=== PATIENT | male | born 1955 | race Caucasian/White ===

== ENCOUNTER 2019-12-14 19:02 | IRF | payer MEDICARE, SELFPAY ==
--- NOTE | ~2019-12-14 | XR_ITS ---
EXAMINATION: XR chest 1V portable DATE: 12/18/2019 15:44 INDICATION: Fever. TECHNIQUE: A single frontal view of the chest was obtained. COMPARISON: Chest 2 views 03/31/2010 FINDINGS: There is volume loss of right hemithorax. Calcified right lung nodules are consistent with old granulomatous disease. There is widening of the superior mediastinum. No pleural effusion or pneu mothorax. Cardiomegaly is noted. There are changes of anterior fusion procedure in cervicothoracic sp ine. IMPRESSION: 1. Widening of superior mediastinum suspicious for lymphadenopathy or right mediastinal radiation fib rosis (if there is such a clinical history). 2. Volume loss of right hemithorax, which may be secondary to atelectasis/scarring or surgical change (if there is such a clinical history). Reviewed, dictated and finalized at location A. ING MACHINE OPERATOR ELECTROSLAG IMPRESSION: 1. Widening of superior mediastinum suspicious for lymphadenopathy or right med iastinal radiation fibrosis (if there is such a clinical history). 2. Volume loss of right hemithorax, which may be secondary to atelectasis/scarr ing or surgical change (if there is such a clinical history).
--- NOTE | ~2019-12-14 | CT_ITS ---
EXAMINATION: CT abdomen pelvis wo con DATE: 12/19/2019 13:23 INDICATION: Fever and abdominal pain, history of laryngeal carcinoma TECHNIQUE: Computed tomography (CT) of the abdomen and pelvis was performed without intravenous contr ast. The dose-length product (DLP) was 1035.68 mGy-cm. Automated exposure control and iterative recon struction technique were employed. COMPARISON: None FINDINGS: There is moderate emphysema of the visualized lung bases. Volume loss is noted in the right lung base with bronchiectasis and multiple dystrophic calcifications. There is a small loculated rig ht pleural effusion. The heart size is normal. Calcified atherosclerosis is noted. Punctate calcifica tions in an otherwise normal spleen likely represent healed granulomatous disease. Mild distention of the otherwise unremarkable gallbladder could be due to fasting state. The liver, pancreas, and adren al glands are normal. The kidneys are unremarkable. There is calcified atherosclerosis of the aorta a nd many of the other arteries. No pathologically enlarged abdominal or pelvic lymph nodes are identif ied. There is no free intraperitoneal gas or evidence of bowel obstruction. There is severe lumbar sp ondylosis. IMPRESSION: 1. No CT correlate for the patient's symptoms. 2. Volume loss in the right lung and lower lobe which could relate to treatment change. Reviewed, dictated and finalized at location A. NDER OPERATOR HELPER
--- NOTE | ~2019-12-14 | XR_ITS ---
EXAMINATION: XR abdomen/kub 1V INDICATION: Abdominal pain and decreased bowel sounds TECHNIQUE: Supine views of the abdomen were obtained on 2 radiographs. COMPARISON: None FINDINGS: No free intraperitoneal gas is identified. No dilated loops of bowel are seen. The visualiz ed lung bases are clear. Cardiomegaly is noted. There is calcified atherosclerosis. Moderate osteoart hritis is noted in the hips. There is severe lumbar spondylosis. IMPRESSION: 1. No radiographic correlate for the patient's symptoms. Reviewed, dictated and finalized at location A. ULTING MANAGER
--- NOTE | 2019-12-14 19:01 | ADMGEN ---
This patient, Alber Pérez, was admitted to [facility] Room 224-02. Patient/family oriented to hospital policies and general routines including ID bracelet, bed and alarms, visiting hours, pain management, procedures, bathroom and other care routines, personal items, smoking policy, room service/diet, and visiting hours. Information on how to activate the Rapid Response Team has been discussed. Patient/Family are encouraged to report perceived risks to care and to ask questions if they do not understand what they are told or what they should do. 1850 Patient transported via medic one, Arrived via stretcher and was transferred to bed with 3 assist, ems reported some confusion to place and time, o/w VSS. oriented to call light and made comfortable in bed.
[2019-12-14 20:54] LABS: Glucose Point of Care 113 (65-105)
[2019-12-14 21:05] VITALS: BP 123/71; PULSE 98; RESP 18; TEMP 36.6; O2SAT 100
[2019-12-14] MEDS: HEPARIN SODIUM 5,000 UNITS/ML VIAL 5000 UNITS SUB-Q (21:14)
[2019-12-14] MEDS: INSULIN GLARGINE (*BKC) 100 UNITS/ML 10 UNITS SUB-Q (21:16)
[2019-12-15 05:44] VITALS: BP 119/68; PULSE 76; RESP 20; TEMP 36.1; O2SAT 94
[2019-12-15 05:56] LABS: Basophils Percent Auto 0.4 % (0.2-1.2); Eosinophils Absolute Auto 0.3 K/mm3 (0-0.3); Eosinophils Percent Auto 4.4 % (0-4.4); Hemoglobin 12.3 g/dL (14.0-18.0); Immature Granulocyte Absolute 0.05 K/mm3 (0.00-0.031); Immature Granulocyte Percent A 0.7 % (0-0.5); Lymphocytes Absolute Auto 1.35 K/mm3 (0.9-3.2); Lymphocytes Percent Auto 19.9 % (18.3-44.2); Mean Corpuscular HGB Conc 32.4 g/dl (32-36); Mean Corpuscular Hemoglobin 30.8 pg (26-34); Mean Platelet Volume 10.8 fl (7.4-10.4); Monocytes Percent Auto 14.7 % (2.6-8.5); Neutrophils Absolute Auto 4.1 K/mm3 (1.3-6.7); Neutrophils Percent Auto 59.9 % (45.5-73.1); Platelet Count Result 278 k/mm3 (150-375); Red Cell Distribution Width 13.6 % (11.5-14.5); White Blood Count 6.8 K/mm3 (4.5-10.0)
[2019-12-15 06:07] LABS: Anion Gap 7 mmol/L (8-16); Blood Urea Nitrogen 19 mg/dL (9-20); Calcium 9.1 mg/dL (8.4-10.2); Carbon Dioxide 34 mmol/L (22-30); Chloride 95 mmol/L (98-107); Estimated Glomerular Filt Rate 47; Glucose 77 mg/dL (75-110); Sodium 136 mmol/L (137-145)
[2019-12-15] MEDS: HEPARIN SODIUM 5,000 UNITS/ML VIAL 5000 UNITS SUB-Q ×3 (06:15→20:41)
[2019-12-15 06:42] LABS: Glucose Point of Care 82 (65-105)
[2019-12-15] MEDS: HYDROcodone/acetaminophen (*CRX) 10-325 MG TABLET 1 TAB PO ×2 (08:16→15:14)
[2019-12-15] MEDS: ATORVASTATIN 40 MG TABLET 80 MG PO (08:17)
[2019-12-15 08:18] VITALS: PULSE 76
[2019-12-15] MEDS: ESCITALOPRAM OXALATE 10 MG TABLET 20 MG PO (08:18)
[2019-12-15] MEDS: lisinopriL 5 MG TABLET PO (08:18)
[2019-12-15] MEDS: hydroCHLOROthiazide 25 MG TABLET PO (08:18)
[2019-12-15] MEDS: METOPROLOL SUCCINATE EXT REL 25 MG TABCR 75 MG PO (08:18)
[2019-12-15] MEDS: buPROPion HCL XL (24 HR) 150 MG TABCR PO (08:18)
[2019-12-15] MEDS: POTASSIUM CHLORIDE 20 MEQ TABLET.ER PO ×2 (08:19→18:00)
[2019-12-15] MEDS: SENNOSIDES 8.6 MG TABLET PO (08:20)
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
[2019-12-15 12:09] LABS: Glucose Point of Care 125 (65-105)
[2019-12-15 13:22] VITALS: BMI 29.8
[2019-12-15 13:23] VITALS: BMI 29.8
[2019-12-15 14:00] VITALS: BP 128/67; PULSE 78; RESP 18; TEMP 36.2; O2SAT 96
[2019-12-15 16:48] LABS: Glucose Point of Care 120 (65-105)
[2019-12-15 20:00] VITALS: PULSE 65; RESP 19; O2SAT 96
[2019-12-15 21:55] LABS: Glucose Point of Care 114 (65-105)
[2019-12-15 22:00] VITALS: BP 128/74; PULSE 65; RESP 19; TEMP 36; O2SAT 96
[2019-12-16] MEDS: HEPARIN SODIUM 5,000 UNITS/ML VIAL 5000 UNITS SUB-Q ×3 (05:31→21:26)
[2019-12-16 05:47] LABS: Glucose Point of Care 87 (65-105)
[2019-12-16 06:00] VITALS: BP 130/76; PULSE 72; RESP 18; TEMP 36.7; O2SAT 100
[2019-12-16 08:00] VITALS: PULSE 72; RESP 18; O2SAT 100
[2019-12-16 09:13] VITALS: PULSE 72
[2019-12-16] MEDS: POTASSIUM CHLORIDE 20 MEQ TABLET.ER PO ×2 (09:13→17:11)
[2019-12-16] MEDS: buPROPion HCL XL (24 HR) 150 MG TABCR PO (09:13)
[2019-12-16] MEDS: ATORVASTATIN 40 MG TABLET 80 MG PO (09:13)
[2019-12-16] MEDS: METOPROLOL SUCCINATE EXT REL 25 MG TABCR 75 MG PO (09:13)
[2019-12-16] MEDS: lisinopriL 5 MG TABLET PO (09:13)
[2019-12-16] MEDS: HYDROcodone/acetaminophen (*CRX) 10-325 MG TABLET 1 TAB PO (09:14)
[2019-12-16] MEDS: hydroCHLOROthiazide 25 MG TABLET PO (09:14)
[2019-12-16] MEDS: ESCITALOPRAM OXALATE 10 MG TABLET 20 MG PO (09:14)
[2019-12-16] MEDS: SENNOSIDES 8.6 MG TABLET PO (09:16)
--- NOTE | 2019-12-16 09:16 | RPD ---
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 Comorbidities include status post craniectomy, hypertension, diabetes mellitus, acute postoperative pain, acute blood loss anemia, and hypoglycemia. The complexity of the patient's medical management, nursing, and therapy needs require an inpatient rehab hospital stay with a physician-led interdisciplinary team approach. The patient?s needs will be best met in an intensive program vs. at a lower level of care. The patient requires physician services for medical oversight, management of post-op complications in setting of present comorbidities, and pain management. The patient requires nursing services for anticoagulation therapy, diabetes training, DVT prophylactics, infection protection, medication management and education, pressure relief, and wound care. Deficits include:ADLs, Balance, Cognition, Endurance, Family Training/Education, Mobility, Pain Management, ROM, Safety, Strength, Transfers Child Daycare Worker/Case Management for: Discharge Planning and Patient/Family Counseling Physical Therapy: 5 days per week for 60 minutes. Treatments may include: Therapeutic Exercise, Gait Training, Neuromuscular Re-education, Transfer Training, Community Reintegration, Bed Mobility, Patient/Family Education, Wheelchair Mobility Group Therapy/Concurrent Therapy Rationales: -Improve attention span during functional activities in a distracted environment. -Enhance problem solving and/or adequate judgment skills during functional activities in a distracted environment. -Promote increased safety awareness in a distracted environment to reduce fall risk with functional tasks, transfers, and ambulation to allow a more safe, self-sufficient return to the home environment. -Improve dynamic balance skills to promote safety and independence with functional activities in a distracted environment for maximum gain. Occupational Therapy: 5 days per week for 60 minutes. Treatments may include: Therapeutic Exercise, Therapeutic Activity, Cognitive Training, Self-Care Transfer Training, Community Reintegration, Home Management, Patient/Family Education, Wheelchair Mobility Training, Energy Conservation Training Group Therapy/Concurrent Therapy Rationales: -Allow therapist to observe and teach generalization and carry-over of skills learned in individual therapy. -Enhance problem solving and sequencing skills during therapeutic activities in a distracted environment. -Promote increased safety awareness in a realistic setting to reduce fall risk with functional tasks due to visual and verbal distractions. -Increase functional level with ADLs, ADL transfers and use of adaptive equipment through therapeutic activities with others while promoting safety to allow a more safe, self-sufficient return home. Speech Therapy: 5 days per week for 60 minutes. Treatments may include: Dysphasia Therapy, Speech/Language/Communication Therapy, Cognitive Training, Patient/Family Education Group Therapy/Concurrent Therapy - Rationale: -Allow therapist to observe and teach generalization and carry-over of skills learned in individual therapy. -Improve comprehension skills with complex or abstract ideas through discussion in a realistic setting. -Enhance problem solving skills with complex issues during activities in a distracted environment. -Promote increased memory skills and concentration in a distracted environment for a safe transition home. -Improve attention and focus with language/communication skills in a realistic and supportive therapeutic setting. -Allow for practice of expression of basic needs and ideas through functional activities with others. Medical Prognosis: Good Anticipated Length of Stay: 14 days Rehab Goals: Eating Goal: 05-Setup or Clean Up Assistance Or
[2019-12-16 11:45] LABS: Glucose Point of Care 115 (65-105)
--- NOTE | 2019-12-16 11:53 | WPDNEURORHBP ---
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 additionally he does have a history of hypertension, hyperlipidemia, and diabetes mellitus, and has undergone craniotomy Review of Systems Review of Systems: All systems reviewed & are unremarkable except as noted in HPI and below Functional Status Ambulation Ability Ability to Ambulate 10 Feet: Minimum Assistance X 1 Ability to Ambulate 50 Feet With 2 Turns: Minimum Assistance X 1 Ambulation Assistive Devices: Walker, Wheeled Transfers Ability Ability to Transfer In/Out of Chair: Contact Guard Exam Narrative: Exam Narrative: on examination he is awake alert cooperative wound is clean her nose throat examination normal neck supple with no meningeal signs no cervical bruit heart regular with no murmur lungs clear to auscultation with no rhonchi or crepitation abdomen is soft with normal bowel sounds nontender neuro examination unchanged Objective Data Vital Signs Vital Signs: Vital Signs - 24 hr 12/15/19 14:00 12/15/19 20:00 12/15/19 22:00 Temperature 36.2 C L 36.0 C L Pulse Rate 78 65 65 Respiratory Rate 18 19 19 Blood Pressure 128/67 128/74 Pulse Oximetry 96 96 96 12/16/19 06:00 12/16/19 08:00 12/16/19 09:13 Temperature 36.7 C Pulse Rate 72 72 72 Respiratory Rate 18 18 Blood Pressure 130/76 Pulse Oximetry 100 100 Intake/Output Intake/Output: Intake & Output 12/13/19 12/14/19 12/15/19 12/16/19 23:59 23:59 23:59 23:59 Intake Total 360 120 Balance 360 120 Meds/Results Medications: Active Medications Generic Name Dose Route Start Last Admin Trade Name Freq PRN Reason Stop Dose Admin Hydrocodone Bitart/Acetaminophen 1 tab 12/14/19 20:07 12/16/19 09:14 Hydrocodone/Acetaminophen (*Crx) 10-325 Mg Tablet PO 1 tab Q6H PRN Administration Pain Albuterol 2 puff 12/14/19 20:07 Albuterol Sulfate (*Sp) Aerosol 1 Puff INHALATION Q6H PRN Wheezing Atorvastatin Calcium 80 mg 12/15/19 09:00 12/16/19 09:13 Atorvastatin 40 Mg Tablet PO 80 mg DAILY EAGLE Administration Bisacodyl 10 mg 12/15/19 07:58 Bisacodyl 10 Mg Suppository RECTAL DAILY PRN Constipation Bupropion HCl 150 mg 12/15/19 09:00 12/16/19 09:13 Bupropion Hcl Xl (24 Hr) 150 Mg Tabcr PO 150 mg QAM EAGLE Administration Calcium Carbonate 200 mg 12/14/19 20:07 Calcium Carbonate (Tums) 500 Mg (200 Mg Elemental) PO QID PRN Abdominal Discomfort Cyclobenzaprine HCl 10 mg 12/14/19 20:07 Cyclobenzaprine Hcl 10 Mg Tablet PO HS PRN Muscle Spasm Dextrose 12.5 gm 12/14/19 19:19 Dextrose 50% 25 Gm/50 Ml Syringe IV PUSH PRN PRN Hypoglycemia Protocol Escitalopram Oxalate 20 mg 12/15/19 09:00 12/16/19 09:14 Escitalopram Oxalate 10 Mg Tablet PO 20 mg DAILY EAGLE Administration Glucagon 1 mg 12/14/19 19:19 Glucagon For Inj 1 Mg Vial IM PRN PRN Hypoglycemia Protocol Glucose 15 gm 12/14/19 19:19 Glucose Oral Gel 15 Gm Of Glucse In 37.5 Gm Tube PO PRN PRN Hypoglycemia Protocol Heparin Sodium (Porcine) 5,000 units 12/14/19 22:00 12/16/19 05:31 Heparin Sodium 5,000 Units/Ml Vial SUB-Q 5,000 units Q8H EAGLE Administration Hydrochlorothiazide 25 mg 12/15/19 09:00 12/16/19 09:14 Hydrochlorothiazide 25 Mg Tablet PO 25 mg DAILY EAGLE Administration Dextrose 1,000 mls @ 100 mls/hr 12/14/19 19:19 Dextrose 5% 1,000 Ml IVPB PRN PRN Hypoglycemia Protocol Insulin Aspart 2 - 5 units 12/15/19 08:00 12/16/19 09:15 Insulin Aspart (*Bkc) 100 Units/Ml SUB-Q Not Given TIDWM EAGLE Protocol Insulin Glargine 10 units 12/14/19 21:00 12/15/19 22:24 Insulin Glargine (*Bkc) 100 Uni
[2019-12-16 14:00] VITALS: BP 105/56; PULSE 70; RESP 20; TEMP 36.1; O2SAT 98
[2019-12-16 17:05] LABS: Glucose Point of Care 116 (65-105)
[2019-12-16] MEDS: polyethylene glycoL 3350 17 GM POWD.PACK PO (18:29)
[2019-12-16 22:00] VITALS: BP 121/62; PULSE 71; RESP 18; TEMP 36.2; O2SAT 95
[2019-12-16 22:12] LABS: Glucose Point of Care 112 (65-105)
[2019-12-17 05:56] VITALS: BP 139/82; PULSE 75; RESP 20; TEMP 36.7; O2SAT 92
[2019-12-17] MEDS: HEPARIN SODIUM 5,000 UNITS/ML VIAL 5000 UNITS SUB-Q ×3 (06:20→20:18)
[2019-12-17 07:14] LABS: Glucose Point of Care 95 (65-105)
[2019-12-17 09:10] VITALS: PULSE 74; RESP 20; O2SAT 92
[2019-12-17 09:13] VITALS: PULSE 74
[2019-12-17] MEDS: ESCITALOPRAM OXALATE 10 MG TABLET 20 MG PO (09:13)
[2019-12-17] MEDS: lisinopriL 5 MG TABLET PO (09:13)
[2019-12-17] MEDS: METOPROLOL SUCCINATE EXT REL 25 MG TABCR 75 MG PO (09:13)
[2019-12-17] MEDS: ATORVASTATIN 40 MG TABLET 80 MG PO (09:14)
[2019-12-17] MEDS: POTASSIUM CHLORIDE 20 MEQ TABLET.ER PO ×2 (09:14→17:50)
[2019-12-17] MEDS: polyethylene glycoL 3350 17 GM POWD.PACK PO ×2 (09:14→17:50)
[2019-12-17] MEDS: buPROPion HCL XL (24 HR) 150 MG TABCR PO (09:14)
[2019-12-17] MEDS: hydroCHLOROthiazide 25 MG TABLET PO (09:15)
[2019-12-17] MEDS: SENNOSIDES 8.6 MG TABLET PO (09:17)
--- NOTE | 2019-12-17 11:18 | PCPTNOTE ---
Patient refused treatment this session due to stating feeling tired. Therapist educated to patient importance of therapy session. Therapist attempted waking up patient 4 times. After 4th time patient rolled over away from therapist and stated you're starting to irritate me. Therapist reeducated patient of importance of therapy. Patient continued to refuse. Therapist will attempt 60 minutes of PT later this date.
--- NOTE | 2019-12-17 11:27 | WPDNEURORHBP ---
Subjective Date/time seen: 12/17/19 11:27 64 years old with the diagnosis of brain dysfunction nontraumatic in nature in addition to the history of small-cell cancer with metastatic disease to the right parietal lobe has been involved in the physical therapy and occupational therapy is able to ambulate using the wheeled walker up to 50ft with 2 turns with minimum assistance of 1 and also able to transfer in and out of chair with contact guard Functional Status Ambulation Ability Ability to Ambulate 10 Feet: Minimum Assistance X 1 Ability to Ambulate 50 Feet With 2 Turns: Minimum Assistance X 1 Ambulation Assistive Devices: Walker, Wheeled Transfers Ability Ability to Transfer In/Out of Chair: Contact Guard Exam Narrative: Exam Narrative: on examination he is awake alert cooperative in no obvious acute distress speech nor dysphasic no dysarthric no dysphonic pupils round regular feels the vision full extraocular was full face symmetrical neck is supple with full range of motion heart regular lungs clear abdomen soft Objective Data Vital Signs Vital Signs: Vital Signs - 24 hr 12/16/19 14:00 12/16/19 22:00 12/17/19 05:56 Temperature 36.1 C L 36.2 C L 36.7 C Pulse Rate 70 71 75 Respiratory Rate 20 18 20 Blood Pressure 105/56 L 121/62 139/82 Pulse Oximetry 98 95 92 12/17/19 09:10 12/17/19 09:13 Temperature Pulse Rate 74 74 Respiratory Rate 20 Blood Pressure Pulse Oximetry 92 Intake/Output Intake/Output: Intake & Output 12/14/19 12/15/19 12/16/19 12/17/19 23:59 23:59 23:59 23:59 Intake Total 360 340 120 Balance 360 340 120 Meds/Results Medications: Active Medications Generic Name Dose Route Start Last Admin Trade Name Freq PRN Reason Stop Dose Admin Hydrocodone Bitart/Acetaminophen 1 tab 12/14/19 20:07 12/16/19 09:14 Hydrocodone/Acetaminophen (*Crx) 10-325 Mg Tablet PO 1 tab Q6H PRN Administration Pain Albuterol 2 puff 12/14/19 20:07 Albuterol Sulfate (*Sp) Aerosol 1 Puff INHALATION Q6H PRN Wheezing Atorvastatin Calcium 80 mg 12/15/19 09:00 12/17/19 09:14 Atorvastatin 40 Mg Tablet PO 80 mg DAILY EAGLE Administration Bisacodyl 10 mg 12/15/19 07:58 Bisacodyl 10 Mg Suppository RECTAL DAILY PRN Constipation Bupropion HCl 150 mg 12/15/19 09:00 12/17/19 09:14 Bupropion Hcl Xl (24 Hr) 150 Mg Tabcr PO 150 mg QAM EAGLE Administration Calcium Carbonate 200 mg 12/14/19 20:07 Calcium Carbonate (Tums) 500 Mg (200 Mg Elemental) PO QID PRN Abdominal Discomfort Cyclobenzaprine HCl 10 mg 12/14/19 20:07 Cyclobenzaprine Hcl 10 Mg Tablet PO HS PRN Muscle Spasm Dextrose 12.5 gm 12/14/19 19:19 Dextrose 50% 25 Gm/50 Ml Syringe IV PUSH PRN PRN Hypoglycemia Protocol Escitalopram Oxalate 20 mg 12/15/19 09:00 12/17/19 09:13 Escitalopram Oxalate 10 Mg Tablet PO 20 mg DAILY EAGLE Administration Glucagon 1 mg 12/14/19 19:19 Glucagon For Inj 1 Mg Vial IM PRN PRN Hypoglycemia Protocol Glucose 15 gm 12/14/19 19:19 Glucose Oral Gel 15 Gm Of Glucse In 37.5 Gm Tube PO PRN PRN Hypoglycemia Protocol Heparin Sodium (Porcine) 5,000 units 12/14/19 22:00 12/17/19 06:20 Heparin Sodium 5,000 Units/Ml Vial SUB-Q 5,000 units Q8H EAGLE Administration Hydrochlorothiazide 25 mg 12/15/19 09:00 12/17/19 09:15 Hydrochlorothiazide 25 Mg Tablet PO 25 mg DAILY EAGLE Administration Dextrose 1,000 mls @ 100 mls/hr 12/14/19 19:19 Dextrose 5% 1,000 Ml IVPB PRN PRN Hypoglycemia Protocol Insulin Aspart 2 - 5 units 12/15/19 08:00 12/17/19 09:45 Insulin Aspart (*Bkc) 100 Units/Ml SUB-Q Not Given TIDWM EAGLE Protocol Insulin Glargine 10 units 12/14/19 21:00 12/16/19 21:29 Insulin Glargine (*Bkc) 100 Units/Ml SUB-Q Not Given HS EAGLE Lactulose 20 gm 12/17/19 10:00 Lactulose 20 Gm/30 Ml Udc PO PRN PRN
[2019-12-17 11:48] LABS: Glucose Point of Care 119 (65-105)
--- NOTE | 2019-12-17 13:06 | PCDIET ---
Nutrition Follow-Up Complete: Nutrition Diagnosis: Overweight related to history of excessive energy intake as evidenced by BMI of 29.8. Nutrition Goal: Patient to consume 75% of meals or greater. Goal not met. Patient only consuming around 10% of meals and c/o nausea, though reportedly refusing Zofran. Recommend adding Glucerna Shake (220kcal, 10g protein) TID with meals and continuing diabetic, carbohydrate controlled diet. Last recorded weight is 99.79 kg. Recommend obtaining new weight. Bowel Motility: Last documented BM on 12/15/19. Labs Reviewed: Glu (119) Meds Noted: [place], Albuterol, Lipitor, Heparin, Hydrochlorothiazide, Novolog, Lantus, Lactulose, Prinivil, Miralax, KCl, Senokot Additional Notes: Right head surgical incision site. No other skin issues documented. Will continue to monitor with same goal. Nutrition Monitoring and Evaluation: Follow up every 5 days.
--- NOTE | 2019-12-17 13:41 | PCPTNOTE ---
Attempted to see patient for 60 minutes of PT, however patient refused reported he is tired and just wants to be left alone. Explained the importance of therapy and why patient was in rehab and patient stated he doesn't care and that he already did therapy once today, explained to patient that was OT and that he has PT to participate in and patient stated no, I'm not doing it. Attempted to educate patient on the importance of therapy and patient continued to refuse.
--- NOTE | 2019-12-17 13:53 | PCSTNOTE ---
The patient treatment was not able to be completed on 12/17/19 due to patient refusal, stating he was tired. Therapist explained why he needs to participate in therapy and he re-stated that he is tired and does not want to participate this afternoon. He was seen for 10 minutes for orientation to time and daily activities. Will plan to continue treatment per plan of care.
[2019-12-17 14:00] VITALS: BP 78/43; PULSE 76; RESP 18; TEMP 36.6; O2SAT 100
--- NOTE | 2019-12-17 14:49 | PC.NURSE ---
Patient's lethargic and refusing therapy this afternoon. Blood pressure was found to be 78/48. Informed Dr. Lorenzo and ihe instructed to hold tomorrow's (12/18/2019) Lisinopril, Hydrachlorathiazide and Metropolol. Will resume medications upon Dr. Lorenzo's instruction based on future BP readings.
[2019-12-17 14:53] VITALS: BP 88/64
[2019-12-17 15:18] LABS: Hematocrit 39.6 % (42.0-52.0); Hemoglobin 13.2 g/dL (14.0-18.0); Mean Corpuscular HGB Conc 33.3 g/dl (32-36); Mean Corpuscular Hemoglobin 31.1 pg (26-34); Mean Corpuscular Volume 93.2 fl (80-100); Mean Platelet Volume 10.4 fl (7.4-10.4); Platelet Count Result 322 k/mm3 (150-375); Red Blood Count 4.25 M/mm3 (4.6-6.20); Red Cell Distribution Width 13.5 % (11.5-14.5); White Blood Count 8.7 K/mm3 (4.5-10.0)
[2019-12-17 15:29] LABS: Alanine Aminotransferase 47 U/L (4-50); Albumin Level 3.8 g/dL (3.5-5.1); Alkaline Phosphatase 81 U/L (38-126); Anion Gap 7 mmol/L (8-16); Aspartate Amino Transferase 50 U/L (17-59); Bilirubin,Total 1.6 mg/dL (0.2-1.3); Blood Urea Nitrogen 18 mg/dL (9-20); Calcium 9.5 mg/dL (8.4-10.2); Carbon Dioxide 34 mmol/L (22-30); Chloride 93 mmol/L (98-107); Estimated CRCL calculation 59 ml/min; Estimated Glomerular Filt Rate > 60; Glucose 111 mg/dL (75-110); Potassium 4.7 mmol/L (3.4-5.0); Sodium 134 mmol/L (137-145)
[2019-12-17 17:09] LABS: Glucose Point of Care 99 (65-105)
[2019-12-17] MEDS: MELATONIN 3 MG TABLET PO (20:18)
[2019-12-17] MEDS: INSULIN GLARGINE (*BKC) 100 UNITS/ML 10 UNITS SUB-Q (20:42)
[2019-12-17 22:00] VITALS: BP 128/68; PULSE 77; RESP 19; TEMP 36.8; O2SAT 96
[2019-12-18 00:25] LABS: Glucose Point of Care 129 (65-105)
[2019-12-18] MEDS: HEPARIN SODIUM 5,000 UNITS/ML VIAL 5000 UNITS SUB-Q ×3 (05:23→21:22)
[2019-12-18 06:00] VITALS: BP 102/53; PULSE 84; RESP 17; TEMP 37.1; O2SAT 98
[2019-12-18 06:08] LABS: Glucose Point of Care 106 (65-105)
[2019-12-18] MEDS: ATORVASTATIN 40 MG TABLET 80 MG PO (09:08)
[2019-12-18] MEDS: POTASSIUM CHLORIDE 20 MEQ TABLET.ER PO ×2 (09:09→16:50)
[2019-12-18] MEDS: buPROPion HCL XL (24 HR) 150 MG TABCR PO (09:09)
[2019-12-18] MEDS: polyethylene glycoL 3350 17 GM POWD.PACK PO ×2 (09:10→16:50)
[2019-12-18] MEDS: ESCITALOPRAM OXALATE 10 MG TABLET 20 MG PO (09:10)
[2019-12-18] MEDS: SENNOSIDES 8.6 MG TABLET PO (09:11)
--- NOTE | 2019-12-18 12:59 | PCPTNOTE ---
Patient refused treatment this session due to being exhausted. Attempted to see patient at 11:00, 11:15, 11:30, and 12:55. Patient agreed to 30 minutes of PT at 11:30. however required max cues for participation. Patient stated, I can't, please no, I can't. I can't even hold my eyes open. Patient continued to request to get to bed during therapy session. Will attempt again in PM to complete last 30 minutes. Althea Christianson, FREIGHT AGENT
[2019-12-18 14:00] VITALS: BP 109/89; PULSE 88; RESP 20; TEMP 37.9; O2SAT 100
--- NOTE | 2019-12-18 14:06 | PM.IMCN ---
Assessment and Plan Assessment and plan (1) Brain dysfunction: Code(s): G93.89 - Other specified disorders of brain Status: Acute Assessment and Plan: SP [facility] on December 04, 2019 craniectomy and tumor resection of the right parietal lobe brain mass (2) Depression: Code(s): F32.9 - Major depressive disorder, single episode, unspecified Status: Acute Assessment and Plan: Obvious depression pt is on buspar states he does not feel like eating, Try ensure for dietary supplement (3) Fever: Code(s): R50.9 - Fever, unspecified Status: Acute Assessment and Plan: SP surgery CXR, BC and UC ordered CXR widening mediastinum KUB nil acute (4) Abdominal pain: Code(s): R10.9 - Unspecified abdominal pain Status: Acute Assessment and Plan: Nurse reports abdominal pain pt denies today, order UC as pt has a fever and is sp surgery, If pt has more andomina pain overnite I think ordering CT ABDOMEN tomorrow (5) Diabetes: Code(s): E11.9 - Type 2 diabetes mellitus without complications Status: Acute Assessment and Plan: CHRONIC AND STABLE accuchecks, SSI and insulin (6) HTN (hypertension): Code(s): I10 - Essential (primary) hypertension Status: Acute Assessment and Plan: CHRONIC AND STABLE lisinopril and metoprolol to continue HPI Data of Consult Consult date: 12/19/19 Requesting Physician: Les Bermeo MD Primary Care Provider: Frank Watters, Consult Narrative Narrative: Alber Pérez is a 64 year old male with a past medical history 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 Pt states he does not feel like eating ? depression. Looks down. Denies abdominal pain, vomiting or diarrhea. Denies fever, chills or vomiting. Opening his bowels. Slight fever here in hospital recent surgery so CXR ordered, BC ordered. UC ordered Review of Systems Review of Systems: All systems reviewed & are unremarkable except as noted in HPI and below PMFSH Family History Family History Father Diabetes mellitus Grandparent Diabetes mellitus Social History Social History Smoking packs per day: 1 Smoking cigarettes per day: 20.0 Years smoked: 30 Smoking pack-years: 30.00 Smoking status: Former smoker Tobacco type: cigarettes Smoking end date: 12/15/19 Alcohol intake: former Substance use: never Substance use type: does not use Gender identity (if verbalized by the patient): Male Spiritual care concerns: No Meds Home Medications and Allergies Home Medications Medication Instructions Recorded Confirmed Type albuterol sulfate 2 puff INHALATION Q6H PRN 12/14/19 12/14/19 History atorvastatin [Lipitor] 80 mg PO DAILY 12/14/19 12/14/19 History atorvastatin [Lipitor] 80 mg PO DAILY 12/14/19 12/14/19 History bisacodyl 10 mg VA DAILY PRN 12/14/19 12/14/19 History bupropion HCl [Wellbutrin XL] 150 mg PO QAM 12/14/19 12/14/19 History calcium carbonate [Tums 500] 500 mg PO QID PRN 12/14/19 12/14/19 History cyclobenzaprine [Flexeril] 10 mg PO HS PRN 12/14/19 12/14/19 History escitalopram oxalate [Lexapro] 20 mg PO DAILY 12/14/19 12/14/19 History heparin (porcine) 5,000 unit SUBCUT Q8H 12/14/19 12/14/19 History hydrochlorothiazide [HydroDiuril] 25 mg PO DAILY 12/14/19 12/14/19 History hydrocodone-acetaminophen [[place]] 1 tablet PO Q6H PRN 12/14/19 12/14/19 History lisinopril 5 mg PO DAILY 12/14/19 12/14/19 History metoprolol succinate [Toprol XL] 75 mg PO DAILY 12/14/19 12/14/19 History nitroglycerin 0.4 mg SUBLINGUA
--- NOTE | 2019-12-18 15:03 | PCPTNOTE ---
Patient refused treatment this session due to feeling tired. Attempted to see patient again at 13:30, however patient continues to refuse despite cues/education on importance of completing therapy. Patient states, It's not happening today, I'm not doing it. Patient closed eyes and went back to sleep. Patient short 30 minutes this date. Althea Christianson, CRO
[2019-12-18 15:19] LABS: Glucose Point of Care 157 (65-105)
[2019-12-18 17:25] LABS: Glucose Point of Care 155 (65-105)
[2019-12-18] MEDS: MELATONIN 3 MG TABLET PO (19:53)
[2019-12-18] MEDS: INSULIN GLARGINE (*BKC) 100 UNITS/ML 10 UNITS SUB-Q (20:05)
[2019-12-18 21:05] VITALS: BP 114/55; PULSE 96; RESP 20; TEMP 36.3; O2SAT 96
[2019-12-18 21:34] LABS: Glucose Point of Care 140 (65-105)
[2019-12-19 05:07] VITALS: BP 137/63; PULSE 93; RESP 18; TEMP 36.2; O2SAT 100
[2019-12-19] MEDS: HEPARIN SODIUM 5,000 UNITS/ML VIAL 5000 UNITS SUB-Q ×3 (05:41→20:14)
[2019-12-19 07:35] LABS: Glucose Point of Care 105 (65-105)
[2019-12-19] MEDS: ATORVASTATIN 40 MG TABLET 80 MG PO (09:12)
[2019-12-19] MEDS: buPROPion HCL XL (24 HR) 150 MG TABCR PO (09:12)
[2019-12-19] MEDS: ESCITALOPRAM OXALATE 10 MG TABLET 20 MG PO (09:12)
[2019-12-19] MEDS: POTASSIUM CHLORIDE 20 MEQ TABLET.ER PO ×2 (09:13→17:03)
[2019-12-19] MEDS: ONDANSETRON HCL ODT 4 MG TABLET PO (09:15)
[2019-12-19 11:50] LABS: Glucose Point of Care 133 (65-105)
--- NOTE | 2019-12-19 12:51 | WPDNEURORHBP ---
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 in addition to the history of small cell cancer with metastatic disease to the right parietal lobe has been involved in physical and occupational therapy but generally not eating well Justen quite and complained that he is not feeling good medical consultation was obtained chest x-ray revealed [place] of the superior mediastinum suspicious for the lymphadenopathy or mediastinal radiation fibrosis in addition to the volume loss of the right hemithorax 2nd to atelectasis or scarring or surgical changes abdominal x-rays were anish patient is already on antidepressant will start the appetite stimulantl Review of Systems Review of Systems: All systems reviewed & are unremarkable except as noted in HPI and below Functional Status Ambulation Ability Ability to Ambulate 10 Feet: Minimum Assistance X 1 Ability to Ambulate 50 Feet With 2 Turns: Minimum Assistance X 1 Ambulation Assistive Devices: Walker, Wheeled Transfers Ability Ability to Transfer In/Out of Chair: Contact Guard Exam Narrative: Exam Narrative: examination revealed him to be awake alert was able to follow the verbal commands appropriately was eating his lunch speech was not dysphasic no dysarthric neck was supple heart was regular lungs were clear abdomen was nontender he himself except that he just does not feel good we will check his routine lab further adjustment will be according Objective Data Vital Signs Vital Signs: Vital Signs - 24 hr 12/18/19 14:00 12/18/19 21:05 12/19/19 05:07 Temperature 37.9 C H 36.3 C L 36.2 C L Pulse Rate 88 96 93 Respiratory Rate 20 20 18 Blood Pressure 109/89 114/55 L 137/63 Pulse Oximetry 100 96 100 Intake/Output Intake/Output: Intake & Output 12/16/19 12/17/19 12/18/19 12/19/19 23:59 23:59 23:59 23:59 Intake Total 340 240 480 Balance 340 240 480 Meds/Results Medications: Active Medications Generic Name Dose Route Start Last Admin Trade Name Freq PRN Reason Stop Dose Admin Hydrocodone Bitart/Acetaminophen 1 tab 12/14/19 20:07 12/16/19 09:14 Hydrocodone/Acetaminophen (*Crx) 10-325 Mg Tablet PO 1 tab Q6H PRN Administration Pain Albuterol 2 puff 12/14/19 20:07 Albuterol Sulfate (*Sp) Aerosol 1 Puff INHALATION Q6H PRN Wheezing Atorvastatin Calcium 80 mg 12/15/19 09:00 12/19/19 09:12 Atorvastatin 40 Mg Tablet PO 80 mg DAILY EAGLE Administration Bisacodyl 10 mg 12/15/19 07:58 Bisacodyl 10 Mg Suppository RECTAL DAILY PRN Constipation Bupropion HCl 150 mg 12/15/19 09:00 12/19/19 09:12 Bupropion Hcl Xl (24 Hr) 150 Mg Tabcr PO 150 mg QAM EAGLE Administration Calcium Carbonate 200 mg 12/14/19 20:07 Calcium Carbonate (Tums) 500 Mg (200 Mg Elemental) PO QID PRN Abdominal Discomfort Cyclobenzaprine HCl 10 mg 12/14/19 20:07 Cyclobenzaprine Hcl 10 Mg Tablet PO HS PRN Muscle Spasm Dextrose 12.5 gm 12/14/19 19:19 Dextrose 50% 25 Gm/50 Ml Syringe IV PUSH PRN PRN Hypoglycemia Protocol Escitalopram Oxalate 20 mg 12/15/19 09:00 12/19/19 09:12 Escitalopram Oxalate 10 Mg Tablet PO 20 mg DAILY EAGLE Administration Glucagon 1 mg 12/14/19 19:19 Glucagon For Inj 1 Mg Vial IM PRN PRN Hypoglycemia Protocol Glucose 15 gm 12/14/19 19:19 Glucose Oral Gel 15 Gm Of Glucse In 37.5 Gm Tube PO PRN PRN Hypoglycemia Protocol Heparin Sodium (Porcine) 5,000 units 12/14/19 22:00 12/19/19 05:41 Heparin Sodium 5,000 Units/Ml Vial SUB-Q 5,000 units Q8H EAGLE Administration Hydrochlorothiazide 25 mg 12/15/19 09:00 12/17/19 09:15 Hydrochlorothiazide 25 Mg Tablet PO 25 mg DAILY EAGLE Administration Dextrose 1,000 mls @ 100 mls/hr 12/14/19 19:19 Dextrose 5% 1,000 Ml IVPB PRN PRN Hypoglycemia Protocol Insulin Aspart 2 - 5 units
[2019-12-19 14:00] VITALS: BP 132/69; PULSE 89; RESP 20; TEMP 36.7; O2SAT 98
--- NOTE | 2019-12-19 14:45 | PM.IMPN ---
Progress Note: A&P Assessment and Plan (1) Brain dysfunction: Code(s): G93.89 - Other specified disorders of brain Status: Acute Assessment and Plan: SP [facility] on December 04, 2019 craniectomy and tumor resection of the right parietal lobe brain mass (2) Depression: Code(s): F32.9 - Major depressive disorder, single episode, unspecified Status: Acute Assessment and Plan: Obvious depression pt is on buspar states he does not feel like eating, Try ensure for dietary supplement (3) Fever: Code(s): R50.9 - Fever, unspecified Status: Acute Assessment and Plan: SP surgery CXR, BC and UC ordered. No fever today but BC and UC are pending. CXR widening mediastinum pt has history of lung cancer, pulmology consulted as CXR is ABNL and pt has a fever. KUB nil acute CT abdo ordered as pt is complaining of generalised abdominal pains. (4) Abdominal pain: Code(s): R10.9 - Unspecified abdominal pain Status: Acute Assessment and Plan: Nurse reports abdominal pain pt denies today, order UC as pt has a fever and is sp surgery, CT Abdo ordered (5) Diabetes: Code(s): E11.9 - Type 2 diabetes mellitus without complications Status: Acute Assessment and Plan: CHRONIC AND STABLE accuchecks, SSI and insulin (6) HTN (hypertension): Code(s): I10 - Essential (primary) hypertension Status: Acute Assessment and Plan: CHRONIC AND STABLE lisinopril and metoprolol to continue Subjective Date/time seen: 12/19/19 14:45 Interval history: Elisa is a 64 year old male with a past medical 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 Pt states he does not feel like eating ? depression. Looks down. Pt had slight fever yesterday septic screen ordered, CXr showed widening mediastium pt has a history of small cell cancer. Pt has lost his appetite and is complaining of generalised abdominal discomfort KUB nil of note , i ordered ct abdomen for patient today. and Pulmology consulation Review of Systems Review of Systems: All systems reviewed & are unremarkable except as noted in HPI and below Exam Const: General: other (Depressed poor eye contact, new craniotomy wound, looks clean ) Eyes: General: appearance normal, both eyes and all related structures Pupils: Equal, round and reactive pupils present Neck: Neck: supple Chest: Chest palpation & inspection: normal inspection of the chest Resp: Effort & Inspection: normal respiratory effort Auscultation: clear to auscultation bilaterally Cardio: Jugular venous distension: no JVD Rhythm: regular rhythm Heart sounds: S1 normal heart sound present and S2 normal heart sound present GI: Inspection: normal to inspection Auscultation: normal bowel sounds : General: Yes no CVA tenderness Back/Spine/Pelvis: Back: no CVA tenderness Skin: General skin exam: normal color and dry skin Neuro: Cranial nerves: Yes CN's II-XII intact bilaterally and Yes Equal, round and reactive pupils present Cognition (Neuro): normal cognition Speech: normal speech Motor exam (neuro): 5/5 motor strength present throughout Extrem: General: normal to inspection Psych: Appearance: grossly normal Mental Status: mental status grossly normal Objective Data Vital Signs Vital Signs: Vital Signs - 24 hr 12/18/19 21:05 12/19/19 05:07 12/19/19 14:00 Temperature 36.3 C L 36.2 C L 36.7 C Pulse Rate 96 93 89 Respiratory Rate 20 18 20 Blood Pressure 114/55 L 137/63 132/69 Pulse Oximetry 96 100 98 Intake/Output Intake/Output: Intake & Output 12/16/19 12/17/19 12/18/19 12/19/19 23:59 23:59 23:59 23:59 Intake Total 340
[2019-12-19 16:46] LABS: Glucose Point of Care 121 (65-105)
[2019-12-19] MEDS: MEGESTROL ACETATE (*CHEMO) 40 MG TABLET PO ×2 (17:02→20:15)
[2019-12-19] MEDS: MELATONIN 3 MG TABLET PO (20:15)
[2019-12-19] MEDS: INSULIN GLARGINE (*BKC) 100 UNITS/ML 10 UNITS SUB-Q (20:16)
[2019-12-19 20:55] LABS: Glucose Point of Care 147 (65-105)
[2019-12-19 22:00] VITALS: BP 117/55; PULSE 98; RESP 20; TEMP 36.7; O2SAT 99
[2019-12-19] MEDS: HYDROcodone/acetaminophen (*CRX) 10-325 MG TABLET 1 TAB PO (22:03)
[2019-12-20 06:00] VITALS: BP 138/92; PULSE 113; RESP 20; TEMP 36; O2SAT 98
[2019-12-20] MEDS: HEPARIN SODIUM 5,000 UNITS/ML VIAL 5000 UNITS SUB-Q ×3 (06:23→20:12)
[2019-12-20] MEDS: MEGESTROL ACETATE (*CHEMO) 40 MG TABLET PO ×4 (06:24→20:12)
[2019-12-20 06:48] LABS: Glucose Point of Care 115 (65-105)
--- NOTE | 2019-12-20 07:40 | PM.IMPN ---
Progress Note: A&P Assessment and Plan (1) Fever: Code(s): R50.9 - Fever, unspecified Status: Acute Assessment and Plan: No fever for 48 hours, BC and urine culture negative so far. CXR widening mediastinum pt has history of lung cancer and has received radiation therapy in the past, no need for pulmonary consultation since these changes on x ray are most likely chronic. CT abdomen did not showed an acute process, no perforation, colitis, his abdominal pain has resolved now. (2) Abdominal pain: Code(s): R10.9 - Unspecified abdominal pain Status: Acute Assessment and Plan: Ct abdomen unremarkable, he is eating without problems, no major findings on exam. (3) Brain dysfunction: Code(s): G93.89 - Other specified disorders of brain Status: Acute Assessment and Plan: [facility] on December 04, 2019 craniectomy and tumor resection of the right parietal lobe brain mass (4) Depression: Code(s): F32.9 - Major depressive disorder, single episode, unspecified Status: Acute Assessment and Plan: Obvious depression pt is on BuSpar states his appetite is better. (5) Diabetes: Code(s): E11.9 - Type 2 diabetes mellitus without complications Status: Acute Assessment and Plan: CHRONIC AND STABLE accuchecks, SSI and insulin (6) HTN (hypertension): Code(s): I10 - Essential (primary) hypertension Status: Acute Assessment and Plan: CHRONIC AND STABLE lisinopril and metoprolol to continue Bp stable Subjective Date/time seen: He has no new complains, he denies abdominal pain this morning, no diarrhea, no urinary symptoms, no SOB or cough. He has been afebrile for 48 hours now. 12/20/19 07:40 Review of Systems Review of Systems: All systems reviewed & are unremarkable except as noted in HPI and below Exam Const: General: no acute distress, alert and awake HENMT: Mouth: Yes tongue normal Neck: Neck: supple Resp: Effort & Inspection: able to speak in complete sentences Other: Minld diffuse rhonchi, no wheezing, not using accessory muscles to breath. Cardio: Jugular venous distension: no JVD Rate: regular rate Rhythm: regular rhythm Heart sounds: S1 normal heart sound present and S2 normal heart sound present GI: GI Palp: Yes Soft to palpation Auscultation: normal bowel sounds Other: Non tender, non distended, no guarding. Skin: General skin exam: no rashes or lesions noted Neuro: General: patient oriented x3, moves all extremities and no focal motor deficits Extrem: General: no clubbing, cyanosis or edema Objective Data Vital Signs Vital Signs: Vital Signs - 24 hr 12/19/19 14:00 12/19/19 22:00 12/20/19 06:00 Temperature 98.1 F 98.0 F 96.8 F L Pulse Rate 89 98 113 H Respiratory Rate 20 Blood Pressure 132/69 117/55 L 138/92 H Pulse Oximetry 98 99 98 Intake/Output Intake/Output: Intake & Output 12/17/19 12/18/19 12/19/19 12/20/19 23:59 23:59 23:59 23:59 Intake Total 240 480 240 Balance 240 480 240 Meds/Results Medications: Active Medications Generic Name Dose Route Start Last Admin Trade Name Freq PRN Reason Stop Dose Admin Hydrocodone Bitart/Acetaminophen 1 tab 12/14/19 20:07 12/19/19 22:03 Hydrocodone/Acetaminophen (*Crx) 10-325 Mg Tablet PO 1 tab Q6H PRN Administration Pain Albuterol 2 puff 12/14/19 20:07 Albuterol Sulfate (*Sp) Aerosol 1 Puff INHALATION Q6H PRN Wheezing Atorvastatin Calcium 80 mg 12/15/19 09:00 12/19/19 09:12 Atorvastatin 40 Mg Tablet PO 80 mg DAILY EAGLE Administration Bisacodyl 10 mg 12/15/19 07:58 Bisacodyl 10 Mg Suppository RECTAL DAILY PRN Constipation Bupropion HCl 150 mg 12/15/19 09:00 12/19/19 09:12 Bupropion Hcl Xl (24 Hr) 150 Mg Tabcr PO 150 mg QAM EAGLE Administration Calcium Carbonate 200 mg 12/14/19 20:07 Calcium Carbonate (Tums) 500
[2019-12-20] MEDS: POTASSIUM CHLORIDE 20 MEQ TABLET.ER PO ×2 (08:18→17:10)
[2019-12-20] MEDS: ATORVASTATIN 40 MG TABLET 80 MG PO (08:18)
[2019-12-20] MEDS: buPROPion HCL XL (24 HR) 150 MG TABCR PO (08:19)
[2019-12-20] MEDS: ESCITALOPRAM OXALATE 10 MG TABLET 20 MG PO (08:19)
[2019-12-20] MEDS: polyethylene glycoL 3350 17 GM POWD.PACK PO ×2 (08:20→17:09)
[2019-12-20] MEDS: HYDROcodone/acetaminophen (*CRX) 10-325 MG TABLET 1 TAB PO (08:24)
[2019-12-20 11:21] VITALS: PULSE 113; RESP 20; O2SAT 98
[2019-12-20 14:00] VITALS: BP 125/68; PULSE 100; RESP 18; TEMP 36.7; O2SAT 99
[2019-12-20] MEDS: MELATONIN 3 MG TABLET PO (20:12)
[2019-12-20] MEDS: INSULIN GLARGINE (*BKC) 100 UNITS/ML 10 UNITS SUB-Q (20:13)
[2019-12-20 20:14] LABS: Glucose Point of Care 188 (65-105)
[2019-12-20 22:00] VITALS: BP 130/70; PULSE 96; RESP 18; TEMP 36.6; O2SAT 98
[2019-12-21 06:00] VITALS: BP 149/80; PULSE 100; RESP 18; TEMP 35.9; O2SAT 98
[2019-12-21] MEDS: HEPARIN SODIUM 5,000 UNITS/ML VIAL 5000 UNITS SUB-Q ×3 (06:00→20:38)
[2019-12-21] MEDS: MEGESTROL ACETATE (*CHEMO) 40 MG TABLET PO ×4 (06:00→20:36)
[2019-12-21 06:41] LABS: Glucose Point of Care 121 (65-105)
[2019-12-21] MEDS: buPROPion HCL XL (24 HR) 150 MG TABCR PO (08:50)
[2019-12-21] MEDS: ATORVASTATIN 40 MG TABLET 80 MG PO (08:50)
[2019-12-21] MEDS: polyethylene glycoL 3350 17 GM POWD.PACK PO ×2 (08:51→17:41)
[2019-12-21] MEDS: ESCITALOPRAM OXALATE 10 MG TABLET 20 MG PO (08:51)
[2019-12-21] MEDS: POTASSIUM CHLORIDE 20 MEQ TABLET.ER PO ×2 (08:51→17:41)
[2019-12-21] MEDS: SENNOSIDES 8.6 MG TABLET PO (08:54)
--- NOTE | 2019-12-21 10:43 | PM.IMPN ---
Progress Note: A&P Assessment and Plan (1) Fever: Code(s): R50.9 - Fever, unspecified Status: Acute Assessment and Plan: Dw with Dr. Lorenzo we will sign off, please call if you have questions. No fever for more than 48 hours, BC and urine culture negative so far. CXR widening mediastinum pt has history of lung cancer and has received radiation therapy in the past, no need for pulmonary consultation since these changes on x ray are most likely chronic. CT abdomen did not showed an acute process, no perforation, colitis, his abdominal pain has resolved now. (2) Abdominal pain: Code(s): R10.9 - Unspecified abdominal pain Status: Acute Assessment and Plan: Ct abdomen unremarkable, he is eating without problems, no major findings on exam. (3) Brain dysfunction: Code(s): G93.89 - Other specified disorders of brain Status: Acute Assessment and Plan: [facility] on December 04, 2019 craniectomy and tumor resection of the right parietal lobe brain mass (4) Depression: Code(s): F32.9 - Major depressive disorder, single episode, unspecified Status: Acute Assessment and Plan: Obvious depression pt is on BuSpar states his appetite is better. (5) Diabetes: Code(s): E11.9 - Type 2 diabetes mellitus without complications Status: Acute Assessment and Plan: CHRONIC AND STABLE accuchecks, SSI and insulin (6) HTN (hypertension): Code(s): I10 - Essential (primary) hypertension Status: Acute Assessment and Plan: CHRONIC AND STABLE lisinopril and metoprolol to continue Bp stable Subjective Date/time seen: No complains today, he is doing fine, no fever. 12/21/19 10:43 Exam Const: General: no acute distress, alert and awake Orientation/consciousness: patient oriented x3 HENMT: Mouth: Yes tongue normal Neck: Neck: supple Resp: Effort & Inspection: able to speak in complete sentences Other: Minld diffuse rhonchi, no wheezing, not using accessory muscles to breath. Cardio: Jugular venous distension: no JVD Rate: regular rate Rhythm: regular rhythm Heart sounds: S1 normal heart sound present and S2 normal heart sound present GI: Auscultation: normal bowel sounds Other: Non tender, non distended, no guarding. Skin: General skin exam: no rashes or lesions noted Neuro: General: patient oriented x3, moves all extremities and no focal motor deficits Extrem: General: no clubbing, cyanosis or edema Objective Data Vital Signs Vital Signs: Vital Signs - 24 hr 12/20/19 11:21 12/20/19 14:00 12/20/19 22:00 Temperature 98.1 F 98 F Pulse Rate 113 H 100 96 Respiratory Rate 20 18 18 Blood Pressure 125/68 130/70 Pulse Oximetry 98 99 98 12/21/19 06:00 Temperature 96.7 F L Pulse Rate 100 Respiratory Rate 18 Blood Pressure 149/80 H Pulse Oximetry 98 Intake/Output Intake/Output: Intake & Output 12/18/19 12/19/19 12/20/19 12/21/19 23:59 23:59 23:59 23:59 Intake Total 480 240 960 240 Balance 480 240 960 240 Meds/Results Medications: Active Medications Generic Name Dose Route Start Last Admin Trade Name Freq PRN Reason Stop Dose Admin Hydrocodone Bitart/Acetaminophen 1 tab 12/14/19 20:07 12/20/19 08:24 Hydrocodone/Acetaminophen (*Crx) 10-325 Mg Tablet PO 1 tab Q6H PRN Administration Pain Albuterol 2 puff 12/14/19 20:07 Albuterol Sulfate (*Sp) Aerosol 1 Puff INHALATION Q6H PRN Wheezing Atorvastatin Calcium 80 mg 12/15/19 09:00 12/21/19 08:50 Atorvastatin 40 Mg Tablet PO 80 mg DAILY EAGLE Administration Bisacodyl 10 mg 12/15/19 07:58 Bisacodyl 10 Mg Suppository RECTAL DAILY PRN Constipation Bupropion HCl 150 mg 12/15/19 09:00 12/21/19 08:50 Bupropion Hcl Xl (24 Hr) 150 Mg Tabcr PO 150 mg QAM EAGLE Administration Calcium Carbonate 200 mg 12/14/19 20:07 Calcium Carbonate (Tums) 500 Mg (200 Mg E
--- NOTE | 2019-12-21 11:07 | WPDNEURORHBP ---
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 along with history of small cell cancer with metastatic disease to the right parietal lobe been involved in the physical therapy and occupational therapy and is making slow and progressive improvement is able to walk with a wheeled walker with contact guard and able to transfer as well with contact guard Functional Status Ambulation Ability Ability to Ambulate 10 Feet: Contact Guard Ability to Ambulate 50 Feet With 2 Turns: Contact Guard Ambulation Assistive Devices: Walker, Wheeled Transfers Ability Ability to Transfer In/Out of Chair: Contact Guard Exam Narrative: Exam Narrative: on examination he is awake alert cooperative speech nor dysphasic no dysarthric not dysphonic neck is supple no cervical bruit heart regular lungs clear neurological examination is unchanged Objective Data Vital Signs Vital Signs: Vital Signs - 24 hr 12/20/19 11:21 12/20/19 14:00 12/20/19 22:00 Temperature 36.7 C 36.6 C Pulse Rate 113 H 100 96 Respiratory Rate 20 18 18 Blood Pressure 125/68 130/70 Pulse Oximetry 98 99 98 12/21/19 06:00 Temperature 35.9 C L Pulse Rate 100 Respiratory Rate 18 Blood Pressure 149/80 H Pulse Oximetry 98 Intake/Output Intake/Output: Intake & Output 12/18/19 12/19/19 12/20/19 12/21/19 23:59 23:59 23:59 23:59 Intake Total 480 240 960 240 Balance 480 240 960 240 Meds/Results Medications: Active Medications Generic Name Dose Route Start Last Admin Trade Name Freq PRN Reason Stop Dose Admin Hydrocodone Bitart/Acetaminophen 1 tab 12/14/19 20:07 12/20/19 08:24 Hydrocodone/Acetaminophen (*Crx) 10-325 Mg Tablet PO 1 tab Q6H PRN Administration Pain Albuterol 2 puff 12/14/19 20:07 Albuterol Sulfate (*Sp) Aerosol 1 Puff INHALATION Q6H PRN Wheezing Atorvastatin Calcium 80 mg 12/15/19 09:00 12/21/19 08:50 Atorvastatin 40 Mg Tablet PO 80 mg DAILY EAGLE Administration Bisacodyl 10 mg 12/15/19 07:58 Bisacodyl 10 Mg Suppository RECTAL DAILY PRN Constipation Bupropion HCl 150 mg 12/15/19 09:00 12/21/19 08:50 Bupropion Hcl Xl (24 Hr) 150 Mg Tabcr PO 150 mg QAM EAGLE Administration Calcium Carbonate 200 mg 12/14/19 20:07 Calcium Carbonate (Tums) 500 Mg (200 Mg Elemental) PO QID PRN Abdominal Discomfort Cyclobenzaprine HCl 10 mg 12/14/19 20:07 Cyclobenzaprine Hcl 10 Mg Tablet PO HS PRN Muscle Spasm Dextrose 12.5 gm 12/14/19 19:19 Dextrose 50% 25 Gm/50 Ml Syringe IV PUSH PRN PRN Hypoglycemia Protocol Escitalopram Oxalate 20 mg 12/15/19 09:00 12/21/19 08:51 Escitalopram Oxalate 10 Mg Tablet PO 20 mg DAILY EAGLE Administration Glucagon 1 mg 12/14/19 19:19 Glucagon For Inj 1 Mg Vial IM PRN PRN Hypoglycemia Protocol Glucose 15 gm 12/14/19 19:19 Glucose Oral Gel 15 Gm Of Glucse In 37.5 Gm Tube PO PRN PRN Hypoglycemia Protocol Heparin Sodium (Porcine) 5,000 units 12/14/19 22:00 12/21/19 06:00 Heparin Sodium 5,000 Units/Ml Vial SUB-Q 5,000 units Q8H EAGLE Administration Hydrochlorothiazide 25 mg 12/15/19 09:00 12/17/19 09:15 Hydrochlorothiazide 25 Mg Tablet PO 25 mg DAILY EAGLE Administration Dextrose 1,000 mls @ 100 mls/hr 12/14/19 19:19 Dextrose 5% 1,000 Ml IVPB PRN PRN Hypoglycemia Protocol Insulin Glargine 10 units 12/14/19 21:00 12/20/19 20:13 Insulin Glargine (*Bkc) 100 Units/Ml SUB-Q 10 units HS EAGLE Administration Lactulose 20 gm 12/17/19 10:00 Lactulose 20 Gm/30 Ml Udc PO PRN PRN CONSTIPATION Lisinopril 5 mg 12/15/19 09:00 12/17/19 09:13 Lisinopril 5 Mg Tablet PO 5 mg DAILY EAGLE Administration Megestrol Acetate 40 mg 12/19/19 16:30 12/21/19 06:00 Megestrol Acetate (*Chemo) 40 Mg Tablet PO 40 mg ACHS EAGLE Administrat
[2019-12-21 14:00] VITALS: BP 108/84; PULSE 104; RESP 16; TEMP 36.4; O2SAT 100
--- NOTE | 2019-12-21 16:32 | PC.NURSE ---
At [address] Eagle office today and left message regarding follow up and when to take stitches out of right parietal area.
[2019-12-21 20:11] VITALS: BP 122/71; PULSE 98; RESP 20; TEMP 36.6; O2SAT 99
[2019-12-21] MEDS: INSULIN GLARGINE (*BKC) 100 UNITS/ML 10 UNITS SUB-Q (20:36)
[2019-12-21] MEDS: MELATONIN 3 MG TABLET PO (20:38)
[2019-12-21 20:40] VITALS: PULSE 98; RESP 20; O2SAT 99
[2019-12-21 20:52] LABS: Glucose Point of Care 183 (65-105)
[2019-12-22] MEDS: HYDROcodone/acetaminophen (*CRX) 10-325 MG TABLET 1 TAB PO ×2 (05:18→21:33)
[2019-12-22] MEDS: MEGESTROL ACETATE (*CHEMO) 40 MG TABLET PO ×4 (05:20→21:19)
[2019-12-22] MEDS: HEPARIN SODIUM 5,000 UNITS/ML VIAL 5000 UNITS SUB-Q ×3 (05:20→21:19)
[2019-12-22 05:27] VITALS: BP 137/76; PULSE 99; RESP 20; TEMP 36.4; O2SAT 99
[2019-12-22 05:50] LABS: Basophils Percent Auto 0.7 % (0.2-1.2); Eosinophils Absolute Auto 0.2 K/mm3 (0-0.3); Eosinophils Percent Auto 2.5 % (0-4.4); Hematocrit 37.9 % (42.0-52.0); Hemoglobin 12.2 g/dL (14.0-18.0); Immature Granulocyte Absolute 0.05 K/mm3 (0.00-0.031); Immature Granulocyte Percent A 0.8 % (0-0.5); Lymphocytes Absolute Auto 1.09 K/mm3 (0.9-3.2); Lymphocytes Percent Auto 18.4 % (18.3-44.2); Mean Corpuscular HGB Conc 32.2 g/dl (32-36); Mean Corpuscular Hemoglobin 30.1 pg (26-34); Mean Corpuscular Volume 93.6 fl (80-100); Mean Platelet Volume 11.4 fl (7.4-10.4); Monocytes Absolute Auto 0.8 K/mm3 (0.1-0.6); Monocytes Percent Auto 14.2 % (2.6-8.5); Neutrophils Absolute Auto 3.8 K/mm3 (1.3-6.7); Neutrophils Percent Auto 63.4 % (45.5-73.1); Platelet Count Result 285 k/mm3 (150-375); Red Blood Count 4.05 M/mm3 (4.6-6.20); Red Cell Distribution Width 13.8 % (11.5-14.5); White Blood Count 5.9 K/mm3 (4.5-10.0)
[2019-12-22 06:04] LABS: Anion Gap 5 mmol/L (8-16); Blood Urea Nitrogen 13 mg/dL (9-20); Calcium 8.9 mg/dL (8.4-10.2); Carbon Dioxide 29 mmol/L (22-30); Chloride 102 mmol/L (98-107); Estimated CRCL calculation 64 ml/min; Estimated Glomerular Filt Rate > 60; Glucose 125 mg/dL (75-110); Potassium 4.3 mmol/L (3.4-5.0); Sodium 136 mmol/L (137-145)
--- NOTE | 2019-12-22 07:17 | PM.IMPN ---
Subjective Date/time seen: 12/22/19 07:17 Objective Data Vital Signs Vital Signs: Vital Signs - 24 hr 12/21/19 14:00 12/21/19 20:11 12/21/19 20:40 Temperature 36.4 C L 36.6 C Pulse Rate 104 H 98 98 Respiratory Rate 16 20 20 Blood Pressure 108/84 122/71 Pulse Oximetry 100 99 99 12/22/19 05:27 Temperature 36.4 C Pulse Rate 99 Respiratory Rate 20 Blood Pressure 137/76 Pulse Oximetry 99 Intake/Output Intake/Output: Intake & Output 12/19/19 12/20/19 12/21/19 12/22/19 23:59 23:59 23:59 23:59 Intake Total 240 960 960 Balance 240 960 960 Meds/Results Medications: Active Medications Generic Name Dose Route Start Last Admin Trade Name Freq PRN Reason Stop Dose Admin Hydrocodone Bitart/Acetaminophen 1 tab 12/14/19 20:07 12/22/19 05:18 Hydrocodone/Acetaminophen (*Crx) 10-325 Mg Tablet PO 1 tab Q6H PRN Administration Pain Albuterol 2 puff 12/14/19 20:07 Albuterol Sulfate (*Sp) Aerosol 1 Puff INHALATION Q6H PRN Wheezing Atorvastatin Calcium 80 mg 12/15/19 09:00 12/21/19 08:50 Atorvastatin 40 Mg Tablet PO 80 mg DAILY EAGLE Administration Bisacodyl 10 mg 12/15/19 07:58 Bisacodyl 10 Mg Suppository RECTAL DAILY PRN Constipation Bupropion HCl 150 mg 12/15/19 09:00 12/21/19 08:50 Bupropion Hcl Xl (24 Hr) 150 Mg Tabcr PO 150 mg QAM EAGLE Administration Calcium Carbonate 200 mg 12/14/19 20:07 Calcium Carbonate (Tums) 500 Mg (200 Mg Elemental) PO QID PRN Abdominal Discomfort Cyclobenzaprine HCl 10 mg 12/14/19 20:07 Cyclobenzaprine Hcl 10 Mg Tablet PO HS PRN Muscle Spasm Dextrose 12.5 gm 12/14/19 19:19 Dextrose 50% 25 Gm/50 Ml Syringe IV PUSH PRN PRN Hypoglycemia Protocol Escitalopram Oxalate 20 mg 12/15/19 09:00 12/21/19 08:51 Escitalopram Oxalate 10 Mg Tablet PO 20 mg DAILY EAGLE Administration Glucagon 1 mg 12/14/19 19:19 Glucagon For Inj 1 Mg Vial IM PRN PRN Hypoglycemia Protocol Glucose 15 gm 12/14/19 19:19 Glucose Oral Gel 15 Gm Of Glucse In 37.5 Gm Tube PO PRN PRN Hypoglycemia Protocol Heparin Sodium (Porcine) 5,000 units 12/14/19 22:00 12/22/19 05:20 Heparin Sodium 5,000 Units/Ml Vial SUB-Q 5,000 units Q8H EAGLE Administration Hydrochlorothiazide 25 mg 12/15/19 09:00 12/17/19 09:15 Hydrochlorothiazide 25 Mg Tablet PO 25 mg DAILY EAGLE Administration Dextrose 1,000 mls @ 100 mls/hr 12/14/19 19:19 Dextrose 5% 1,000 Ml IVPB PRN PRN Hypoglycemia Protocol Insulin Glargine 10 units 12/14/19 21:00 12/21/19 20:36 Insulin Glargine (*Bkc) 100 Units/Ml SUB-Q 10 units HS EAGLE Administration Lactulose 20 gm 12/17/19 10:00 Lactulose 20 Gm/30 Ml Udc PO PRN PRN CONSTIPATION Lisinopril 5 mg 12/15/19 09:00 12/17/19 09:13 Lisinopril 5 Mg Tablet PO 5 mg DAILY EAGLE Administration Megestrol Acetate 40 mg 12/19/19 16:30 12/22/19 05:20 Megestrol Acetate (*Chemo) 40 Mg Tablet PO 40 mg ACHS EAGLE Administration Melatonin 3 mg 12/17/19 21:00 12/21/19 20:38 Melatonin 3 Mg Tablet PO 3 mg HS EAGLE Administration Metoprolol Succinate 75 mg 12/15/19 09:00 12/17/19 09:13 Metoprolol Succinate Ext Rel 25 Mg Tabcr PO 75 mg DAILY EAGLE Administration Nitroglycerin 0.4 mg 12/14/19 20:07 Nitroglycerin Sl 0.4 Mg Tablet SUBLINGUAL Q5M PRN Chest Pain Ondansetron HCl 4 mg 12/15/19 07:59 12/19/19 09:15 Ondansetron Hcl Odt 4 Mg Tablet PO 4 mg Q6H PRN Administration Nausea And Vomiting Polyethylene Glycol 17 gm 12/16/19 17:00 12/21/19 17:41 Polyethylene Glycol 3350 17 Gm Powd.Pack PO 17 gm BID EAGLE Administration Potassium Chloride 20 meq 12/15/19 09:00 12/21/19 17:41 Potassium Chloride 20 Meq Tablet.Er PO 20 meq BID EAGLE Administration Prochlorperazine Maleate 10 mg 12/15/19 08:00 Prochlorperazine Gabriella
[2019-12-22 07:27] LABS: Glucose Point of Care 137 (65-105)
[2019-12-22] MEDS: ESCITALOPRAM OXALATE 10 MG TABLET 20 MG PO (08:27)
[2019-12-22] MEDS: ATORVASTATIN 40 MG TABLET 80 MG PO (08:27)
[2019-12-22] MEDS: POTASSIUM CHLORIDE 20 MEQ TABLET.ER PO ×2 (08:27→16:30)
[2019-12-22] MEDS: buPROPion HCL XL (24 HR) 150 MG TABCR PO (08:27)
--- NOTE | 2019-12-22 11:21 | PCNFU ---
Nutrition Follow-Up Complete: Overweight related to history of excessive energy intake as evidenced by BMI of 29.8. Goal: Patient to consume 75% of meals or greater. Patient has met current goal. No new goal. Pt current nutrition is [facility]. Nutrition recommendation: Agree Last recorded weight is 99.79 kg. Bowel Motility:+BM reported 12/21. Labs Reviewed:Glu 125,Na 136,Hct 37.9, Hgb 12.2 Meds Noted:Lexapro,Lipitor,Wellbutrin. Additional Notes: Nutrition follow up. Patient is consuming 100% of most meals. Appetite much improved. Diet supplements have been discontinued, patient no longer drinking them. Agree with diet orders. Monitoring: Follow up every 7 days.
--- NOTE | 2019-12-22 11:39 | PC.NURSE ---
received call from Dr. Eagle archbold - [facility], [place] to remove sutures,
[2019-12-22 14:00] VITALS: BP 135/90; PULSE 90; RESP 18; TEMP 36.2; O2SAT 100
[2019-12-22] MEDS: polyethylene glycoL 3350 17 GM POWD.PACK PO (16:31)
--- NOTE | 2019-12-22 17:17 | PC.NURSE ---
sutures removed from right parietal head without difficulty. no c/o pain or discomfort. no signs of infection, incision is healed well-no redness, warmth or drainage.
[2019-12-22 20:33] VITALS: BP 139/80; PULSE 91; RESP 18; TEMP 36.3; O2SAT 100
[2019-12-22] MEDS: MELATONIN 3 MG TABLET PO (21:19)
[2019-12-22] MEDS: INSULIN GLARGINE (*BKC) 100 UNITS/ML 10 UNITS SUB-Q (21:26)
[2019-12-23 02:43] LABS: Glucose Point of Care 156 (65-105)
[2019-12-23 05:23] VITALS: BP 135/78; PULSE 96; RESP 18; TEMP 36.4; O2SAT 97
[2019-12-23] MEDS: HEPARIN SODIUM 5,000 UNITS/ML VIAL 5000 UNITS SUB-Q ×3 (05:31→20:37)
[2019-12-23] MEDS: MEGESTROL ACETATE (*CHEMO) 40 MG TABLET PO ×4 (05:33→20:37)
[2019-12-23 06:28] LABS: Glucose Point of Care 118 (65-105)
[2019-12-23 08:00] VITALS: PULSE 96; RESP 18; O2SAT 97
[2019-12-23] MEDS: ATORVASTATIN 40 MG TABLET 80 MG PO (08:35)
[2019-12-23] MEDS: POTASSIUM CHLORIDE 20 MEQ TABLET.ER PO ×2 (08:35→17:24)
[2019-12-23] MEDS: ESCITALOPRAM OXALATE 10 MG TABLET 20 MG PO (08:35)
[2019-12-23] MEDS: polyethylene glycoL 3350 17 GM POWD.PACK PO ×2 (08:36→17:24)
[2019-12-23] MEDS: buPROPion HCL XL (24 HR) 150 MG TABCR PO (08:36)
[2019-12-23] MEDS: SENNOSIDES 8.6 MG TABLET PO (08:37)
--- NOTE | 2019-12-23 09:09 | PCOTNOTE ---
Attempted therapy session at 8:30am, but patient refused to get up, stating he didn't sleep well and was just too tired to get up. Therapist offered moving therapy session back 30 minutes and patient stated he accepted this compromise. A second attempt was made at 9:00am, but patient stated he was still too tired and refused to participate. Will attempt again later today.
[2019-12-23] MEDS: HYDROcodone/acetaminophen (*CRX) 10-325 MG TABLET 1 TAB PO (10:22)
--- NOTE | 2019-12-23 10:38 | PCOTNOTE ---
Attempted OT treatment, but patient declined secondary to head pain. Patient reporting pain at a 7 in the back of his head. Patient reported that he just had medication for pain. Patient stated, I don't want to move . Therapist recommended adjusting how he was laying or even trying to sit up to relieve tension on head, but patient reported that he already tried. Patient reported that he feels best lying like he currently is in supine. Patient also declined to perform exercises in bed. RN notified and aware of pain. RN reported that she had given patient pain medication approximately 15 minutes ago. Patient did not receive any OT minutes this morning.
--- NOTE | 2019-12-23 10:55 | WPDNEURORHBP ---
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 has been involved the physical therapy and occupational therapy and making gradual but significant improvement at presently using other contact guard and has been walking with the wheeled walker up to 50ft with 2 turns and also able to transfer in and out of chair with a contact guard Review of Systems Review of Systems: All systems reviewed & are unremarkable except as noted in HPI and below Functional Status Ambulation Ability Ability to Ambulate 10 Feet: Contact Guard Ability to Ambulate 50 Feet With 2 Turns: Contact Guard Ambulation Assistive Devices: Walker, Wheeled Transfers Ability Ability to Transfer In/Out of Chair: Standby Assistance Exam Narrative: Exam Narrative: on examination he is awake alert cooperative head normocephalic with no cranial bruits no signs of infection neck is supple with no cervical bruit no thyromegaly no lymphadenopathy heart regular with no murmur lungs clear to auscultation no rhonchi or crepitation abdomen is soft nontender normal bowel sounds neurological examination remains unchanged Objective Data Vital Signs Vital Signs: Vital Signs - 24 hr 12/22/19 14:00 12/22/19 20:33 12/23/19 05:23 Temperature 36.2 C L 36.3 C L 36.4 C Pulse Rate 90 91 96 Respiratory Rate 18 18 18 Blood Pressure 135/90 139/80 135/78 Pulse Oximetry 100 100 97 12/23/19 08:00 Temperature Pulse Rate 96 Respiratory Rate 18 Blood Pressure Pulse Oximetry 97 Intake/Output Intake/Output: Intake & Output 12/20/19 12/21/19 12/22/19 12/23/19 23:59 23:59 23:59 23:59 Intake Total 960 960 720 240 Balance 960 960 720 240 Meds/Results Medications: Active Medications Generic Name Dose Route Start Last Admin Trade Name Freq PRN Reason Stop Dose Admin Hydrocodone Bitart/Acetaminophen 1 tab 12/14/19 20:07 12/23/19 10:22 Hydrocodone/Acetaminophen (*Crx) 10-325 Mg Tablet PO 1 tab Q6H PRN Administration Pain Albuterol 2 puff 12/14/19 20:07 Albuterol Sulfate (*Sp) Aerosol 1 Puff INHALATION Q6H PRN Wheezing Atorvastatin Calcium 80 mg 12/15/19 09:00 12/23/19 08:35 Atorvastatin 40 Mg Tablet PO 80 mg DAILY EAGLE Administration Bisacodyl 10 mg 12/15/19 07:58 Bisacodyl 10 Mg Suppository RECTAL DAILY PRN Constipation Bupropion HCl 150 mg 12/15/19 09:00 12/23/19 08:36 Bupropion Hcl Xl (24 Hr) 150 Mg Tabcr PO 150 mg QAM EAGLE Administration Calcium Carbonate 200 mg 12/14/19 20:07 Calcium Carbonate (Tums) 500 Mg (200 Mg Elemental) PO QID PRN Abdominal Discomfort Cyclobenzaprine HCl 10 mg 12/14/19 20:07 Cyclobenzaprine Hcl 10 Mg Tablet PO HS PRN Muscle Spasm Dextrose 12.5 gm 12/14/19 19:19 Dextrose 50% 25 Gm/50 Ml Syringe IV PUSH PRN PRN Hypoglycemia Protocol Escitalopram Oxalate 20 mg 12/15/19 09:00 12/23/19 08:35 Escitalopram Oxalate 10 Mg Tablet PO 20 mg DAILY EAGLE Administration Glucagon 1 mg 12/14/19 19:19 Glucagon For Inj 1 Mg Vial IM PRN PRN Hypoglycemia Protocol Glucose 15 gm 12/14/19 19:19 Glucose Oral Gel 15 Gm Of Glucse In 37.5 Gm Tube PO PRN PRN Hypoglycemia Protocol Heparin Sodium (Porcine) 5,000 units 12/14/19 22:00 12/23/19 05:31 Heparin Sodium 5,000 Units/Ml Vial SUB-Q 5,000 units Q8H EAGLE Administration Hydrochlorothiazide 25 mg 12/15/19 09:00 12/17/19 09:15 Hydrochlorothiazide 25 Mg Tablet PO 25 mg DAILY EAGLE Administration Dextrose 1,000 mls @ 100 mls/hr 12/14/19 19:19 Dextrose 5% 1,000 Ml IVPB PRN PRN Hypoglycemia Protocol Insulin Glargine 10 units 12/14/19 21:00 12/22/19 21:26 Insulin Glargine (*Bkc) 100 Units/Ml SUB-Q 10 units HS EAGLE Administration Lactulose 20 gm 1
--- NOTE | 2019-12-23 11:12 | PCPTNOTE ---
Patient refused treatment this session due to head pain. Attempted to see patient at 11:00 for PT session, however patient refused to participate despite education on importance of therapy. Patient declined completing supine exercises or sitting sitting edge of bed to attempt therapy. Patient states that he just doesn't feel good and he needs to sleep. RN informed of patient's complaints of pain and fatigue. Will attempt to see patient again to complete PT treatment. Althea Christianson, TANK FARM OPERATOR 11:18, 12/23/2019
--- NOTE | 2019-12-23 11:52 | PCPTNOTE ---
Patient refused treatment this session due to not feeling well. Patient states that his headache is now in the front of his head. RN informed. Patient would not keep eyes open while VOCATIONAL TECHNICAL EDUCATION TEACHER communicating with patient. Patient states that nothing will help his pain and he just needs to rest. Patient did not complete any PT minutes this AM. Will attempt to see patient in PM as appropriate. Althea Christianson, MAGDI, 11:55, 12/23/2019
[2019-12-23 14:00] VITALS: BP 146/74; PULSE 82; RESP 20; TEMP 36.8; O2SAT 98
--- NOTE | 2019-12-23 14:15 | PCOTNOTE ---
OT treatment attempted x 2 at 12:30 and again at 13:30. Patient declined all OT treatment due to headache and stomach ache. Nurse notified of patient c/o. Patient does report he will participate in OT tomorrow.
--- NOTE | 2019-12-23 15:16 | PCPTNOTE ---
Patient refused treatment this session due to fatigue and not feeling well. Patient reports that he is feeling a little better, however continues to decline participation with PT when attempted at 15:10. Patient did not complete 60 minutes of PT this date. Will attempt again tomorrow. Althea Christianson, DOLLYMAN 12/23/2019 15:18
--- NOTE | 2019-12-23 17:06 | PC.NURSE ---
Called surgeon office Dr. Tramaine Eagle in [place] asking how long patient will need to be on heparin after discharge from here to home. Advised the office that some days patient will do therapy and some days he won't. Office returned call and stated it would be up to Dr. Lorenzo or the patient's primary doctor on how long patient needs to be on heparin after discharge from [facility].
[2019-12-23] MEDS: HYDROCORTISONE 1% 30 GM CREAM 1 APPLIC TOPICAL (17:24)
[2019-12-23] MEDS: MELATONIN 3 MG TABLET PO (20:37)
[2019-12-23] MEDS: INSULIN GLARGINE (*BKC) 100 UNITS/ML 10 UNITS SUB-Q (20:42)
[2019-12-23 21:41] LABS: Glucose Point of Care 194 (65-105)
[2019-12-23 22:00] VITALS: BP 126/90; PULSE 93; RESP 16; TEMP 36; O2SAT 95
[2019-12-24] MEDS: HEPARIN SODIUM 5,000 UNITS/ML VIAL 5000 UNITS SUB-Q ×3 (05:59→20:55)
[2019-12-24] MEDS: HYDROCORTISONE 1% 30 GM CREAM 1 APPLIC TOPICAL ×3 (05:59→20:41)
[2019-12-24 06:00] VITALS: BP 122/62; PULSE 91; RESP 17; TEMP 37.2; O2SAT 100
[2019-12-24] MEDS: MEGESTROL ACETATE (*CHEMO) 40 MG TABLET PO ×4 (06:00→20:38)
[2019-12-24 06:31] LABS: Glucose Point of Care 140 (65-105)
[2019-12-24] MEDS: ATORVASTATIN 40 MG TABLET 80 MG PO (08:43)
[2019-12-24] MEDS: buPROPion HCL XL (24 HR) 150 MG TABCR PO (08:43)
[2019-12-24] MEDS: ESCITALOPRAM OXALATE 10 MG TABLET 20 MG PO (08:44)
[2019-12-24] MEDS: POTASSIUM CHLORIDE 20 MEQ TABLET.ER PO ×2 (08:45→17:49)
[2019-12-24] MEDS: polyethylene glycoL 3350 17 GM POWD.PACK PO (08:45)
[2019-12-24] MEDS: SENNOSIDES 8.6 MG TABLET PO (08:47)
--- NOTE | 2019-12-24 11:48 | WPDNEURORHBP ---
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 has been involved in the physical therapy and occupational therapy and generally making significant improvement Review of Systems Review of Systems: All systems reviewed & are unremarkable except as noted in HPI and below Functional Status Ambulation Ability Ability to Ambulate 10 Feet: Contact Guard Ability to Ambulate 50 Feet With 2 Turns: Contact Guard Ambulation Assistive Devices: Walker, Wheeled Transfers Ability Ability to Transfer In/Out of Chair: Standby Assistance Exam Narrative: Exam Narrative: he is awake [place] no obvious acute distress ear nose throat neck supple heart regular lungs clear abdomen soft neuron change and the local wound is clean Objective Data Vital Signs Vital Signs: Vital Signs - 24 hr 12/23/19 14:00 12/23/19 22:00 12/24/19 06:00 Temperature 36.8 C 36.0 C L 37.2 C Pulse Rate 82 93 91 Respiratory Rate 20 16 17 Blood Pressure 146/74 H 126/90 122/62 Pulse Oximetry 98 95 100 Intake/Output Intake/Output: Intake & Output 12/21/19 12/22/19 12/23/19 12/24/19 23:59 23:59 23:59 23:59 Intake Total 960 720 720 480 Balance 960 720 720 480 Meds/Results Medications: Active Medications Generic Name Dose Route Start Last Admin Trade Name Freq PRN Reason Stop Dose Admin Hydrocodone Bitart/Acetaminophen 1 tab 12/14/19 20:07 12/23/19 10:22 Hydrocodone/Acetaminophen (*Crx) 10-325 Mg Tablet PO 1 tab Q6H PRN Administration Pain Albuterol 2 puff 12/14/19 20:07 Albuterol Sulfate (*Sp) Aerosol 1 Puff INHALATION Q6H PRN Wheezing Atorvastatin Calcium 80 mg 12/15/19 09:00 12/24/19 08:43 Atorvastatin 40 Mg Tablet PO 80 mg DAILY EAGLE Administration Bisacodyl 10 mg 12/15/19 07:58 Bisacodyl 10 Mg Suppository RECTAL DAILY PRN Constipation Bupropion HCl 150 mg 12/15/19 09:00 12/24/19 08:43 Bupropion Hcl Xl (24 Hr) 150 Mg Tabcr PO 150 mg QAM EAGLE Administration Calcium Carbonate 200 mg 12/14/19 20:07 Calcium Carbonate (Tums) 500 Mg (200 Mg Elemental) PO QID PRN Abdominal Discomfort Cyclobenzaprine HCl 10 mg 12/14/19 20:07 Cyclobenzaprine Hcl 10 Mg Tablet PO HS PRN Muscle Spasm Dextrose 12.5 gm 12/14/19 19:19 Dextrose 50% 25 Gm/50 Ml Syringe IV PUSH PRN PRN Hypoglycemia Protocol Diphenhydramine HCl 25 mg 12/23/19 14:29 Diphenhydramine Hcl Cap 25 Mg Capsule PO Q6H PRN Itching Escitalopram Oxalate 20 mg 12/15/19 09:00 12/24/19 08:44 Escitalopram Oxalate 10 Mg Tablet PO 20 mg DAILY EAGLE Administration Glucagon 1 mg 12/14/19 19:19 Glucagon For Inj 1 Mg Vial IM PRN PRN Hypoglycemia Protocol Glucose 15 gm 12/14/19 19:19 Glucose Oral Gel 15 Gm Of Glucse In 37.5 Gm Tube PO PRN PRN Hypoglycemia Protocol Heparin Sodium (Porcine) 5,000 units 12/14/19 22:00 12/24/19 05:59 Heparin Sodium 5,000 Units/Ml Vial SUB-Q 5,000 units Q8H EAGLE Administration Hydrochlorothiazide 25 mg 12/15/19 09:00 12/17/19 09:15 Hydrochlorothiazide 25 Mg Tablet PO 25 mg DAILY EAGLE Administration Hydrocortisone 1 applic 12/23/19 15:00 12/24/19 08:44 Hydrocortisone 1% 30 Gm Cream TOPICAL 1 applic Q12HR EAGLE Administration Dextrose 1,000 mls @ 100 mls/hr 12/14/19 19:19 Dextrose 5% 1,000 Ml IVPB PRN PRN Hypoglycemia Protocol Insulin Glargine 10 units 12/14/19 21:00 12/23/19 20:42 Insulin Glargine (*Bkc) 100 Units/Ml SUB-Q 10 units HS EAGLE Administration Lactulose 20 gm 12/17/19 10:00 Lactulose 20 Gm/30 Ml Udc PO PRN PRN CONSTIPATION Lisinopril 5 mg 12/15/19 09:00 12/17/19 09:13 Lisinopril 5 Mg Tablet PO 5 mg DAILY EAGLE Administration Megestrol Acetate 40 mg 12/19/19 16:30
[2019-12-24 14:00] VITALS: BP 123/61; PULSE 96; RESP 18; TEMP 36.8; O2SAT 100
[2019-12-24] MEDS: MELATONIN 3 MG TABLET PO (20:38)
[2019-12-24] MEDS: INSULIN GLARGINE (*BKC) 100 UNITS/ML 10 UNITS SUB-Q (20:46)
[2019-12-24 22:00] VITALS: BP 116/64; PULSE 93; RESP 20; TEMP 37; O2SAT 98
[2019-12-25 00:31] LABS: Glucose Point of Care 178 (65-105)
[2019-12-25] MEDS: HEPARIN SODIUM 5,000 UNITS/ML VIAL 5000 UNITS SUB-Q ×3 (05:20→20:09)
[2019-12-25] MEDS: MEGESTROL ACETATE (*CHEMO) 40 MG TABLET PO ×4 (05:22→20:08)
[2019-12-25 06:00] VITALS: BP 146/71; PULSE 88; RESP 20; TEMP 36.2; O2SAT 99
[2019-12-25 07:15] LABS: Glucose Point of Care 145 (65-105)
[2019-12-25] MEDS: ESCITALOPRAM OXALATE 10 MG TABLET 20 MG PO (08:36)
[2019-12-25] MEDS: ATORVASTATIN 40 MG TABLET 80 MG PO (08:36)
[2019-12-25] MEDS: buPROPion HCL XL (24 HR) 150 MG TABCR PO (08:36)
[2019-12-25] MEDS: POTASSIUM CHLORIDE 20 MEQ TABLET.ER PO ×2 (08:37→17:43)
[2019-12-25] MEDS: HYDROCORTISONE 1% 30 GM CREAM 1 APPLIC TOPICAL ×2 (08:37→20:08)
[2019-12-25 14:00] VITALS: BP 137/75; PULSE 90; RESP 20; TEMP 37.2; O2SAT 100
[2019-12-25] MEDS: INSULIN GLARGINE (*BKC) 100 UNITS/ML 10 UNITS SUB-Q (20:07)
[2019-12-25] MEDS: MELATONIN 3 MG TABLET PO (20:09)
[2019-12-25 20:59] LABS: Glucose Point of Care 150 (65-105)
[2019-12-25 21:11] VITALS: BP 117/74; PULSE 84; RESP 18; TEMP 36.9; O2SAT 99
[2019-12-26 06:00] VITALS: BP 147/78; PULSE 87; RESP 18; TEMP 37.6; O2SAT 100
[2019-12-26] MEDS: HEPARIN SODIUM 5,000 UNITS/ML VIAL 5000 UNITS SUB-Q (06:53)
[2019-12-26] MEDS: MEGESTROL ACETATE (*CHEMO) 40 MG TABLET PO (06:54)
[2019-12-26 07:08] LABS: Glucose Point of Care 119 (65-105)
[2019-12-26] MEDS: ATORVASTATIN 40 MG TABLET 80 MG PO (09:15)
[2019-12-26] MEDS: buPROPion HCL XL (24 HR) 150 MG TABCR PO (09:15)
[2019-12-26] MEDS: ESCITALOPRAM OXALATE 10 MG TABLET 20 MG PO (09:16)
[2019-12-26] MEDS: POTASSIUM CHLORIDE 20 MEQ TABLET.ER PO (09:16)
[2019-12-26] MEDS: HYDROCORTISONE 1% 30 GM CREAM 1 APPLIC TOPICAL (09:16)
[2019-12-26] MEDS: SENNOSIDES 8.6 MG TABLET PO (09:18)
--- NOTE | 2019-12-28 07:57 | PCPTNOTE ---
Patient refused treatment this session due to fatigue. Attempted to see patient 12/25/2019 at 11 AM for 60 minute treatment, however patient refused to participate more than 15 minutes. Attempts made twice in PM, however patient only completed 25 minutes before continuing to refuse participation due to fatigue. Patient did not complete PT minutes on 12/25/2019, short 20 minutes. Althea Christianson, FASHION ARTIST
--- NOTE | 2019-12-29 11:56 | PM.DS ---
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 Hypertension 2. Hyperlipidemia 3. Diabetes mellitus and 4. History of craniotomy this time Eating supervise Oral Care substantial or max assist Toileting Hygiene substantial or max assist Shower/Bathing substantial or max assist Upper Body Dressing substantial max assist Lower Body Dressing substantial or max assist Donning/[place] Footwear substantial or max assist] Rolling Left and Right supervision Sit to Lying partial assistance Lying to Sitting partial assistance Sit to Stand supervision Bed to Chair Transfers partial assistance Toilet Transfers partial assistance Car Transfers partial assistance Walking 10' partial assistance Walking 50' with Two Turns not applicable Walking 150' not applied Curb or Step partial assistance 4 Steps not applicable 12 Steps not applicable Picking Up Object partial pharmacy affairs assistant [Wheelchair Mobility 50'] partial pharmacy affairs assistant [Wheelchair Mobility 150'] not applicable GOALS: Eating [INDEPENDENT] Oral Care set up or clean up Toileting Hygiene set up or clean up Shower/Bathing supervision Upper Body Dressing set up or clean up Lower Body Dressing set up or clean up Donning/[place] Footwear supervision Rolling Left and Right [INDEPENDENT] Sit to Lying [INDEPENDENT] Lying to Sitting [INDEPENDENT] Sit to Stand [INDEPENDENT] Bed to Chair Transfers [INDEPENDENT] Toilet Transfers [INDEPENDENT] Car Transfers [INDEPENDENT] Walking 10' [INDEPENDENT] Walking 50' with Two Turns [INDEPENDENT] Walking 150' supervision Curb or Step [INDEPENDENT] 4 Steps [INDEPENDENT] 12 Steps supervision Picking Up Object [INDEPENDENT] [Wheelchair Mobility 50'] [INDEPENDENT] [Wheelchair Mobility 150'] [INDEPENDENT] DISCHARGE PERFORMANCE: Eating set up or clean up Oral Care supervision Toileting Hygiene supervision Shower/Bathing supervision Upper Body Dressing set up were clean up Lower Body Dressing partial assistance Donning/[place] Footwear setup for clean up Rolling Left and Right [INDEPENDENT] Sit to Lying [INDEPENDENT] Lying to Sitting [INDEPENDENT] Sit to Stand supervision Bed to Chair Transfers supervise Toilet Transfers supervision Car Transfers supervision Walking 10' supervision Walking 50' with Two Turns supervision Walking 150' supervision Curb or Step supervision 4 Steps super vision 12 Steps not applicable Picking Up Object partial assistance [Wheelchair Mobility 50'] [INDEPENDENT] [Wheelchair Mobility 150'] [INDEPENDENT] The patient had no falls during the entire hospitalization he was discharged to his home with a home health and he improved Eating [Set Up Only] Oral Care [] Toileting Hygiene [] Shower/Bathing [] Upper Body Dressing [] Lower Body Dressing [] Donning/[place] Footwear [] Rolling Left and Right [] Sit to Lying [] Lying to Sitting [] Sit to Stand [] Bed to Chair Transfers [] Toilet Transfers [] Car Transfers [] Walking 10' [] Walking 50' with Two Turns [] Walking 150' [] Curb or Step [] 4 Steps [] 12 Steps [] Picking Up Object [] [Wheelchair Mobility 50'] [] [Wheelchair Mobility 150'] [] GOALS: Eating [INDEPENDENT] Oral Care [INDEPENDENT] Toileting Hygiene [INDEPENDENT] Shower/Bathing [INDEPENDENT] Upper Body Dressing [INDEPENDENT] Lower Body Dressing [INDEPENDENT] Donning/[place] Footwear [INDEPENDENT] Rolling Left and Right [INDEPENDENT] Sit to Lying [INDEPENDENT] Lying to Sitting [INDEPENDENT] Sit to Stand [INDEPENDENT] Bed to Chair Transfers [INDEPENDENT] Toilet Transfers [INDEPENDENT] Car Transfers [INDEPENDENT] Walking 10' [IN
== END 2019-12-26 10:55 | disposition home health service (06) | DRG 949 ==
PROVIDERS: Psychiatry & Neurology Neurology; Admitting Provider Psychiatry & Neurology Neurology; PCP Internal Medicine; Visit Provider Psychiatry & Neurology Neurology
DX: Z48.811 Encounter for surgical aftercare following surgery on the nervous system (principal); J98.59 Other diseases of mediastinum, not elsewhere classified; C79.31 Secondary malignant neoplasm of brain; E11.9 Type 2 diabetes mellitus without complications; E78.5 Hyperlipidemia, unspecified; F32.9 Major depressive disorder, single episode, unspecified; I25.2 Old myocardial infarction; I10 Essential (primary) hypertension; J44.9 Chronic obstructive pulmonary disease, unspecified; R26.89 Other abnormalities of gait and mobility; Z85.118 Personal history of other malignant neoplasm of bronchus and lung; Z87.891 Personal history of nicotine dependence; Z86.711 Personal history of pulmonary embolism; Z79.4 Long term (current) use of insulin
CPT/HCPCS: 36415; 71045; 74018; 74176; 80048; 80053; 83036; 85025; 85027; 87040; 87086; 92507; 92523; 97110; 97112; 97116; 97162; 97165; 97166; 97530; 97535; A9270; J1644; J1815